=== PATIENT | female | born 1975 | race Caucasian/White ===

== ENCOUNTER 2017-08-02 16:31 | Emergency (ER) | payer OTHER ==
--- NOTE | 2017-08-02 16:41 | UC ---
Abdominal Pain Female HPI - HPI Summary HPI Summary: 41 YEAR OLD FEMALE PRESENTS WITH COMPLAINS OF SEVERE LEFT UPPER QUADRANT PAIN. I WILL SEND HER TO THE ER TO RULE OUT PANCREATIC OR SPLENIC PATHOLOGY. - History of Current Complaint Stated Complaint: UPPER LEFT ABD/PELVIS PAIN Time Seen by Provider: 08/02/17 16:36 Hx Obtained From: Patient Hx Last Menstrual Period: 08/04/16 Onset/Duration: Sudden Onset, Lasting Minutes Severity Initially: Moderate Severity Currently: Moderate Pain Scale Used: 0-10 Numeric - 5 Location: Discrete At: LUQ Character: Aching, Sharp Aggravating Factor(s): Nothing Alleviating Factor(s): Nothing Associated Signs and Symptoms: Positive: Negative Allergies/Adverse Reactions: Allergies Allergy/AdvReac Type Severity Reaction Status Date / Time Sulfa Antibiotics Allergy GI Upset Verified 08/02/17 17:09 Varenicline [From Chantix] AdvReac Agitation Verified 08/02/17 17:09 Home Medications: Home Medications Echinacea [Echinacea Plus] 2 cap PO BEDTIME PRN 08/02/17 [History Confirmed 12/18] Elderberry [Little Remedies For Colds] 575 mg PO QID 08/02/17 [History Confirmed 08/02/17] Ibuprofen TAB* [Motrin TAB* 800 MG] 800 mg PO Q6H PRN 08/02/17 [History Confirmed 08/02/17] Mother Wort 1 udc PO DAILY PRN 08/02/17 [History] Multiple Vitamins W/ Minerals [Emergen-C Vitamin C] 2 ole PO DAILY PRN 08/02/17 [History Confirmed 08/02/17] Zinc Gluconate [Zinc] 30 mg PO DAILY PRN 08/02/17 [History Confirmed 08/02/17] PMH/Surg Hx/FS Hx/Imm Hx Previously Healthy: Yes - Surgical History Surgical History: Yes Surgery Procedure, Year, and Place: 2 pylonidal cysts removed - Family History Known Family History: Positive: None - Social History Alcohol Use: Rare Substance Use Type: Prescribed Smoking Status (MU): Heavy Every Day Tobacco Smoker Type: Cigarettes Amount Used/How Often: 1/2 PPD Have You Smoked in the Last Year: Yes Review of Systems Constitutional: Negative Skin: Negative Eyes: Negative ENT: Negative Respiratory: Negative Cardiovascular: Negative Gastrointestinal: Negative Genitourinary: Negative Motor: Negative Neurovascular: Negative Musculoskeletal: Other: - RIGHT INDEX FINGER SWELLING/PAIN Neurological: Negative Psychological: Negative All Other Systems Reviewed And Are Negative: Yes Physical Exam Triage Information Reviewed: Yes Eye Exam: Normal ENT Exam: Normal Dental Exam: Normal Neck exam: Normal Neck: Positive: 1 Respiratory Exam: Normal Cardiovascular Exam: Normal Abdominal Exam: Normal Musculoskeletal Exam: Normal Neurological Exam: Normal Psychological Exam: Normal Skin Exam: Normal Abd Pain Female Course/Dx - Differential Dx/Diagnosis Provider Diagnoses: LUQ PAIN Discharge - Discharge Plan Condition: Stable Disposition: HOME Patient Education Materials: Abdominal Pain (ED) Referrals: Gilda Conway MD [Primary Care Provider] - Additional Instructions: PATIENT SUGGESTED TO GO TO THE ER FOR SEVERE LEFT UPPER QUADRANT PAIN.
[2017-08-02 17:11] VITALS: BP 99/55
== END 2017-08-02 17:26 | disposition home or self-care (01) ==
LOC: UCCORT 16:31
DX: R10.12 Left upper quadrant pain (principal); Z72.0 Tobacco use
CPT/HCPCS: 99212; G0463